=== PATIENT | male | born 1975 | race Caucasian/White ===

== ENCOUNTER 2016-10-10 23:09 | Emergency (ER) | payer OTHER ==
[~2016-10-10 23:09] MED LIST: ALBUTEROL17 GM INH; AMOXIL875 MG PO; ATARAX PO; AUGMENTIN875 MG PO; BACTRIM DS TABL1 TA2 PO; BENADRYL; HYDROMET SYRUP480 ML PO; ILOTYCIN1 G1 OP; ILOTYCIN1 GM OS; NO MEDICATIONS; OCUFLOX10 ML OS; PREDNISONE PO; PROMETHAZINE-D240 ML PO; TRAMADOL HCL50 M2 PO; VICODIN 5/1 TAB 5/50 PO; VOLTAREN75 MG PO; ZITHROMAX
== END 2016-10-11 00:27 | disposition home or self-care (01) ==
LOC: SED 23:09
DX: B34.9 Viral infection, unspecified (principal)
CPT/HCPCS: 87651; 99283